=== PATIENT | male | born 1950 | race Caucasian/White ===

== ENCOUNTER 2019-03-02 08:27 | Outpatient (CLI) | payer OTHER | END 2019-03-02 08:36 | disposition home or self-care (01) | LOC: SONOGRAMA 08:27 | DX: R97.20 Elevated prostate specific antigen [PSA] (principal); N40.1 Benign prostatic hyperplasia with lower urinary tract symptoms ==

== ENCOUNTER → 2020-05-02 | Outpatient (CLI) | payer OTHER | END | disposition home or self-care (01) | LOC: MAMO-SONO 08:15 → SONOGRAMA 10:44 | PROVIDERS: ATTEND Urology | DX: R10.84 Generalized abdominal pain (principal); N39.0 Urinary tract infection, site not specified; R31.0 Gross hematuria ==